=== PATIENT | female | born 1995 | race Caucasian/White ===

== ENCOUNTER 2017-10-14 15:00 | Emergency (ER) | payer MEDICAID, SELFPAY | END 2017-10-14 16:22 | disposition home or self-care (01) | PROVIDERS: Emergency Provider Nurse Practitioner; Family Provider Family Medicine; Visit Provider Nurse Practitioner | DX: J06.9 Acute upper respiratory infection, unspecified (principal) | CPT/HCPCS: 87804; 99201 ==

== ENCOUNTER 2017-10-20 22:13 | Emergency (ER) | payer MEDICAID, SELFPAY ==
[2017-10-20 22:19] VITALS: BP 114/64; PULSE 68; RESP 18; TEMP 37.1; O2SAT 98; BMI 18.6
--- NOTE | 2017-10-20 22:43 | HMH.EDANIB ---
ED Disposition Clinical Impression: Dog bite of extremity, Laceration Disposition: Home, Self-Care Condition on Discharge: Good Instructions: How to Care for a Laceration After Repair Additional Instructions: suture out 10 days and see pcp for follow up and check with health dept Prescriptions: Minocycline HCl 100 mg PO BID #20 tab Referrals: Milo Michel MD [Primary Care Provider] - - Critical Care Critical Care Time: No Attestation: On , the high probability of a clinically significant, sudden or life threatening deterioration of the following system(s) required my full and direct attention, intervention and personal management. The time I documented below is in addition to time spent performing reported procedures but includes the following listed in this critical care notation. Medical Decision Making - Medical Records Medical records reviewed: Yes: I reviewed the patient's medical records. Vital Signs: 10/20/17 22:19 Temperature 98.8 F Temperature Source Oral Pulse Rate [Right Radial] 68 Respiratory Rate 18 Blood Pressure [Right Arm] 114/64 Blood Pressure Mean [Right Arm] 80 Blood Pressure Source [Right Arm] Automatic Cuff Blood Pressure Position [Right Arm] Sitting 02 Sat by Pulse Oximetry 98 Oxygen Delivery Method Room Air Orders (Tests/Meds): ED MEDICATIONS Discontinued Medications Generic Name Dose Route Start Last Admin Trade Name Freq PRN Reason Stop Dose Admin Tetanus/Diphtheria Toxoids 0.5 ml 10/20/17 22:53 10/20/17 23:00 Tenivac 0.5ml Syringe IM 10/20/17 22:54 0.5 ml .ONCE ONE Administration - Leonel Inquiry Pt receiving controlled substance: No Animal Bite HPI - General Chief Complaint: Extremity Injury, Upper Stated Complaint: AO 10/20/17 @ 2030 Dog Bite to Left Arm Time Seen by Provider: 10/20/17 22:43 Mode of Arrival: Ambulatory Source of Information: Patient, Significant Other, Medical Record Limitations: No Limitations Description of Symptoms (Recalled from ER Triage Doc. by RN): PT REPORTS SHE WAS BITTEN BY A STRAY DOG ON LEFT FOREARM - History of Present Illness HPI narrative: pt with dog bite on lt forearm tonight by loretta cruz MD complaint: animal bite Onset (ago): hour(s) Animal: dog Description of animal: unknown animal, immunizations unknown, appeared well Mechanism: bite Left: forearm Context: animals fighting Associated symptoms: none - Related Data Patient tetanus UTD: No Home Medications Medication Instructions Recorded Confirmed Escitalopram Oxalate [Lexapro] 10 mg PO DAILY 10/20/17 10/20/17 Previous Rx's Medication Instructions Recorded Minocycline HCl 100 mg PO BID #20 tab 10/20/17 Allergies Allergy/AdvReac Type Severity Reaction Status Date / Time Penicillins [PENICILLINS] Allergy Unknown Verified 10/20/17 22:30 [facility] History I have reviewed the patient's past medical history: Yes Laterality Cases: Bilateral: Tonsillectomy - *Social History Smoking Status: Current every day smoker Tobacco Type: cigarettes Alcohol Intake: never - Psychiatric History Expresses thoughts of harming self/others: None Suicide Plan Description: No Plan ROS Obtained: Yes All systems reviewed & no additional complaints except as noted - Constitutional Denies fever(s) - Eyes Denies change in vision - ENT Denies neck pain - Cardiovascular Denies chest pain - Respiratory Denies cough - Gastrointestinal Denies abdominal pain - Musculoskeletal Denies joint pain - Integumentary/Breasts Reports wounds - Neurologic Denies seizure-like activity Physical Exam - General General appearance: in no apparent distress - Head Head exam: normocephalic - Eye Eye exam: Present: PERRL, EOMI - ENT ENT exam: Present: mucous membranes moist - Neck Neck exam: Present: full ROM - Respiratory Respiratory exam: Absent: respiratory distress - Cardiovascular Cardiovascular exam: Present: r
--- NOTE | 2018-01-19 17:03 | ED_ITS ---
ED Disposition Clinical Impression: Dog bite of extremity, Laceration Disposition: Home, Self-Care Condition on Discharge: Good Instructions: How to Care for a Laceration After Repair Additional Instructions: suture out 10 days and see pcp for follow up and check with health dept Prescriptions: Minocycline HCl 100 mg PO BID #20 tab Referrals: Milo Michel MD [Primary Care Provider] - - Critical Care Critical Care Time: No Attestation: On , the high probability of a clinically significant, sudden or life threatening deterioration of the following system(s) required my full and direct attention, intervention and personal management. The time I documented below is in addition to time spent performing reported procedures but includes the following listed in this critical care notation. Medical Decision Making - Medical Records Medical records reviewed: Yes: I reviewed the patient's medical records. Vital Signs: 10/20/17 22:19 Temperature 98.8 F Temperature Source Oral Pulse Rate [Right Radial] 68 Respiratory Rate 18 Blood Pressure [Right Arm] 114/64 Blood Pressure Mean [Right Arm] 80 Blood Pressure Source [Right Arm] Automatic Cuff Blood Pressure Position [Right Arm] Sitting 02 Sat by Pulse Oximetry 98 Oxygen Delivery Method Room Air Orders (Tests/Meds): ED MEDICATIONS Discontinued Medications Generic Name Dose Route Start Last Admin Trade Name Freq PRN Reason Stop Dose Admin Tetanus/Diphtheria Toxoids 0.5 ml 10/20/17 22:53 10/20/17 23:00 Tenivac 0.5ml Syringe IM 10/20/17 22:54 0.5 ml .ONCE ONE Administration - Leonel Inquiry Pt receiving controlled substance: No Animal Bite HPI - General Chief Complaint: Extremity Injury, Upper Stated Complaint: AO 10/20/17 @ 2030 Dog Bite to Left Arm Time Seen by Provider: 10/20/17 22:43 Mode of Arrival: Ambulatory Source of Information: Patient, Significant Other, Medical Record Limitations: No Limitations Description of Symptoms (Recalled from ER Triage Doc. by RN): PT REPORTS SHE WAS BITTEN BY A STRAY DOG ON LEFT FOREARM - History of Present Illness HPI narrative: pt with dog bite on lt forearm tonight by loretta cruz MD complaint: animal bite Onset (ago): hour(s) Animal: dog Description of animal: unknown animal, immunizations unknown, appeared well Mechanism: bite Left: forearm Context: animals fighting Associated symptoms: none - Related Data Patient tetanus UTD: No Home Medications Medication Instructions Recorded Confirmed Escitalopram Oxalate [Lexapro] 10 mg PO DAILY 10/20/17 10/20/17 Previous Rx's Medication Instructions Recorded Minocycline HCl 100 mg PO BID #20 tab 10/20/17 Allergies Allergy/AdvReac Type Severity Reaction Status Date / Time Penicillins [PENICILLINS] Allergy Unknown Verified 10/20/17 22:30 [facility] History I have reviewed the patient's past medical history: Yes Laterality Cases: Bilateral: Tonsillectomy - *Social History Smoking Status: Current every day smoker Tobacco Type: cigarettes Alcohol Intake: never - Psychiatric History Expresses thoughts of harming self/others: None Suicide Plan Description: No Plan ROS Obtained: Yes All systems reviewed & no additional complaints except
== END 2017-10-20 23:38 | disposition home or self-care (01) ==
PROVIDERS: Emergency Provider Emergency Medicine; Family Provider Family Medicine; PCP Family Medicine
DX: S51.832A Puncture wound without foreign body of left forearm, initial encounter (principal); W54.0XXA Bitten by dog, initial encounter; Y92.9 Unspecified place or not applicable; Z23 Encounter for immunization
CPT/HCPCS: 90714; 96372; 99282

== ENCOUNTER → 2018-11-21 07:31 | Outpatient (CLI) | payer BC, SELFPAY ==
[2018-11-22 07:48] LABS: Basophils % 0.9 % (0.1-2.0); Eosinophils # 0.1 K/mm3 (0.0-0.4); Eosinophils % 2.2 % (0.1-12.0); Hematocrit 41.3 % (37.0-47.0); Hemoglobin 13.2 g/dL (12.2-16.2); Lymphocytes % 21.9 % (10-50); Mean Corpuscular Hemoglobin 29.6 pg (27.0-31.2); Mean Corpuscular Volume 92.4 fl (81-99); Mean Platelet Volume 8.8 fl (7.4-10.4); Monocytes # 0.3 K/mm3 (0.1-1.0); Monocytes % 6.9 % (1.7-9.3); Neutrophils # 3.2 K/mm3 (1.8-7.8); Neutrophils % 68.1 % (37.0-80.0); Platelet Count 299 K/mm3 (142-424); Red Blood Count 4.47 M/mm3 (4.20-5.40); Red Cell Distribution Width 13.2 % (11.5-17.5); White Blood Count 4.7 K/mm3 (4.8-10.8)
[2018-11-22 08:14] LABS: Alanine Aminotransferase 13 U/L (12-78); Albumin Level 4.2 gm/dL (3.4-5.0); Albumin/Globulin Ratio 1.5 (1.1-1.8); Alkaline Phosphatase 48 U/L (46-116); Anion Gap 13.4 mEq/L (5-15); Aspartate Amino Transferase 8 U/L (15-37); Bilirubin,Total 0.4 mg/dL (0.2-1.0); Blood Urea Nitrogen 8 mg/dL (7-18); Calcium 9.3 mg/dL (8.5-10.1); Carbon Dioxide 26 mmol/L (21.0-32.0); Chloride 104 mmol/L (98-107); Chol/HDL Ratio 2.6 (1-3.5); Cholesterol 119 mg/dL (140-200); Creatinine,Serum 0.77 mg/dL (0.55-1.02); Estimated Glomerular Filt Rate 94 ml/min (>60); GFR (African American) 113 ML/MIN (>60); Globulin 2.8 gm/dl (1.3-3.2); Glucose 102 mg/dL (74-106); HDL Cholesterol 46 mg/dL (29-89); LDL Cholesterol 60 mg/dL (0-130); Potassium 4.4 mmoL/L (3.5-5.1); Sodium 139 mmol/L (136-145); T4 (Thyroxine) 9.2 ug/dl (4.7-13.3); Thyroid Stimulating Hormone 1.17 uIU/ml (0.358-3.740); Triglycerides 63 mg/dL (30-200); VLDL Cholesterol 13 mg/dL (0-40)
[2018-11-23 09:31] LABS: Vitamin D 25 Hydroxy 38.3 ng/mL (30.0-100.0)
== END ==
PROVIDERS: Visit Provider Physician Assistant
DX: F32.9 Major depressive disorder, single episode, unspecified (principal); F41.9 Anxiety disorder, unspecified; F43.10 Post-traumatic stress disorder, unspecified
CPT/HCPCS: 80053; 80061; 82652; 84436; 84443; 85025

== ENCOUNTER → 2019-02-19 13:30 | Outpatient (CLI) | payer BC, SELFPAY ==
[2019-02-19 14:47] LABS: HCG,Quantitative 758 mIU/mL
== END ==
PROVIDERS: Visit Provider Nurse Practitioner Obstetrics & Gynecology
DX: Z34.90 Encounter for supervision of normal pregnancy, unspecified, unspecified trimester (principal)
CPT/HCPCS: 36415; 84702

== ENCOUNTER → 2019-03-02 11:56 | Outpatient (CLI) | payer BC, MEDICAID, SELFPAY ==
--- NOTE | 2019-03-02 12:01 | US_ITS ---
US OB transvaginal CLINICAL INDICATION: ITS.REASON: US OB Dates ORDERING PHYSICIAN: Ty Healy MD PATIENT AGE: 24 years Comparison: None FINDINGS: There is an intrauterine gestational sac with a crown-rump length of 0.67 cm correlating to a gestational age of 6 weeks and 4 days. A yolk sac is present. heart tones are present at 129 bpm. There is a 6.6 cm cyst in the right adnexal region with low-level internal echoes and may represent a hemorrhagic cyst. There is blood flow within both ovaries. The left ovary is unremarkable. IMPRESSION: 1. Live intrauterine gestation at 6 weeks 4 days. Estimated due date by ultrasound is 10/22/2019 2. 6.6 cm complex right ovarian cyst
== END ==
PROVIDERS: PCP Physician Assistant; Visit Provider Nurse Practitioner Obstetrics & Gynecology
DX: O26.841 Uterine size-date discrepancy, first trimester (principal)
CPT/HCPCS: 76817

== ENCOUNTER → 2019-03-02 12:37 | Outpatient (CLI) | payer BC, SELFPAY ==
[2019-03-02 13:00] LABS: Basophils % 0.4 % (0.1-2.0); Eosinophils # 0.1 K/mm3 (0.0-0.4); Eosinophils % 1.1 % (0.1-12.0); Hematocrit 36.2 % (37.0-47.0); Hemoglobin 12.5 g/dL (12.2-16.2); Lymphocytes # 1.3 K/mm3 (0.7-4.5); Lymphocytes % 22.8 % (10-50); Mean Corpuscular HGB Conc 34.7 g/dL (31.8-35.4); Mean Corpuscular Hemoglobin 30.2 pg (27.0-31.2); Mean Corpuscular Volume 87.1 fl (81-99); Monocytes # 0.3 K/mm3 (0.1-1.0); Monocytes % 5.8 % (1.7-9.3); Neutrophils # 3.8 K/mm3 (1.8-7.8); Neutrophils % 69.9 % (37.0-80.0); Platelet Count 315 K/mm3 (142-424); Red Blood Count 4.15 M/mm3 (4.20-5.40); Red Cell Distribution Width 12.6 % (11.5-17.5); White Blood Count 5.5 K/mm3 (4.8-10.8)
[2019-03-02 14:15] LABS: HCG,Quantitative 16408 mIU/mL
[2019-03-03 08:40] LABS: Rapid Plasma Reagin Ab Titer Non Reactive (NonRea<1:1)
[2019-03-03 18:10] LABS: HIV Screen 4th Generation wRfx Non Reactive (Non Reactive); Hepatitis B Surface Antigen Negative (Negative); Hepatitis C Antibody <0.1 s/co ratio (0.0-0.9)
[2019-03-07 06:15] LABS: Neisseria gonorrhoeae, NAA Negative (Negative)
== END ==
PROVIDERS: Visit Provider Nurse Practitioner Obstetrics & Gynecology
DX: Z34.90 Encounter for supervision of normal pregnancy, unspecified, unspecified trimester (principal)
CPT/HCPCS: 36415; 84702; 85025; 86592; 86703; 86762; 86850; 87340; 87380; 87491; 87591; G0432

== ENCOUNTER → 2019-04-06 11:23 | Outpatient (CLI) | payer BC, SELFPAY | PROVIDERS: Visit Provider Nurse Practitioner Obstetrics & Gynecology | DX: O09.899 Supervision of other high risk pregnancies, unspecified trimester (principal); Z36.0 Encounter for antenatal screening for chromosomal anomalies | CPT/HCPCS: 36415 ==

== ENCOUNTER 2021-03-09 11:25 | Emergency (ER) | payer MEDICAID, SELFPAY ==
--- NOTE | 2021-03-09 | ECG_ITS ---
APPROVED REPORT Exam: Resting ECG HR:48 bpm ECG Measurements Heart Rate 48 AXES GA 122 P 45 QRSd 92 QRS 100 QT 426 T 46 QTc 380 Conclusion Marked sinus bradycardia with sinus arrhythmia Rightward axis Abnormal ECG Electronically signed by : Milo Catherine, 03/14/2021 07:37:51
[2021-03-09 11:26] VITALS: BP 129/70; PULSE 52; RESP 16; TEMP 36.8; O2SAT 100; BMI 22.8
--- NOTE | 2021-03-09 11:41 | XR_ITS ---
PROCEDURE: XR CHEST PORTABLE CLINICAL HISTORY: cough Chest pain and cough COMPARISON: No exams were available for comparison FINDINGS: The cardiomediastinal silhouette and pulmonary vascularity are within normal limits. The lungs are clear without infiltrates, suspicious nodules, or pleural effusions. No acute bony abnormalities. IMPRESSION: No acute findings. Dictated by: Ho Ayon MD 03/09/2021 12:05 Ho Ayon MD in OV 03/09/2021 12:05
[2021-03-09 11:45] VITALS: BP 108/66; PULSE 50; RESP 18; O2SAT 99
--- NOTE | 2021-03-09 11:54 | PC.NURSE ---
Rad at bedside.
[2021-03-09 12:00] VITALS: BP 108/62; PULSE 46; O2SAT 97
[2021-03-09 12:28] LABS: Alanine Aminotransferase 17 U/L (12-78); Albumin Level 4.4 g/dl (3.5-5.0); Albumin/Globulin Ratio 1.8 (1.1-1.8); Alkaline Phosphatase 58 U/L (38-126); Anion Gap 8.6 mEq/L (5-15); Aspartate Amino Transferase 31 U/L (14-36); Bilirubin,Total 0.4 mg/dl (0.2-1.3); Blood Urea Nitrogen 18 mg/dl (7-17); Calcium 8.6 mg/dl (8.4-10.2); Carbon Dioxide 27 mmol/L (22.0-30.0); Chloride 107 mmol/L (98-107); Creatinine Clearance Estimated 141 mL/min (50-200); Estimated Glomerular Filt Rate 122 ml/min (>60); GFR (African American) 147 ML/MIN (>60); Globulin 2.5 g/dL (1.3-3.2); Glucose 84 mg/dl (74-100); Potassium 3.6 mmoL/L (3.5-5.1); Sodium 139 mmol/L (136-145); Total Protein,Serum 6.9 g/dl (6.3-8.2)
[2021-03-09 12:34] LABS: Basophils % 0.5 % (0.1-2.0); Eosinophils # 0.1 K/mm3 (0.0-0.4); Eosinophils % 0.8 % (0.1-12.0); Hematocrit 36.2 % (37.0-47.0); Hemoglobin 12.3 g/dL (12.2-16.2); Lymphocytes # 2.2 K/mm3 (0.7-4.5); Lymphocytes % 36.4 % (10-50); Mean Corpuscular HGB Conc 34.1 g/dL (31.8-35.4); Mean Corpuscular Hemoglobin 29.8 pg (27.0-31.2); Mean Corpuscular Volume 87.5 fl (81-99); Mean Platelet Volume 8.1 fl (7.4-10.4); Monocytes # 0.4 K/mm3 (0.1-1.0); Monocytes % 6.8 % (1.7-9.3); Neutrophils # 3.3 K/mm3 (1.8-7.8); Neutrophils % 55.5 % (37.0-80.0); Platelet Count 281 K/mm3 (142-424); Red Blood Count 4.14 M/mm3 (4.20-5.40); Red Cell Distribution Width 13.2 % (11.5-17.5); White Blood Count 5.9 K/mm3 (4.8-10.8)
[2021-03-09 12:36] VITALS: BP 103/62; PULSE 50; RESP 18; O2SAT 97
[2021-03-09 12:39] LABS: Troponin I < 0.01 ng/ml (0.00-0.034)
--- NOTE | 2021-03-09 12:53 | HMH.EDGENADL ---
ED Disposition Clinical Impression: Costochondritis, acute Upper respiratory infection Qualifiers: URI type: unspecified URI Qualified Code(s): J06.9 - Acute upper respiratory infection, unspecified Disposition: Home, Self-Care Condition on Discharge: Good Instructions: DI for Costochondritis Prescriptions: Ibuprofen [Ibuprofen 800mg Tablet] 800 mg PO TIDP PRN #20 tab PRN Reason: Moderate Pain Transmission Status: Pending to [id number] Referrals: Provider,Referral, [Primary Care Provider] - - Critical Care Critical Care Time: No Attestation: On 03/09/21, the high probability of a clinically significant, sudden or life threatening deterioration of the following system(s) required my full and direct attention, intervention and personal management. The time I documented below is in addition to time spent performing reported procedures but includes the following listed in this critical care notation. Medical Decision Making - Medical Records Medical records reviewed: Yes: I reviewed the patient's medical records. - Leonel Inquiry Pt receiving controlled substance: No Vital Signs: 03/09/21 11:26 03/09/21 11:45 03/09/21 12:00 Temperature 98.3 F Temperature Source Oral Pulse Rate 50 L 46 L Pulse Rate [Right] 52 L Respiratory Rate 16 18 Blood Pressure 108/66 L 108/62 L Blood Pressure [Right Arm] 129/70 Blood Pressure Mean Blood Pressure Mean [Right Arm] 89 Blood Pressure Source [Right Arm] Automatic Cuff Blood Pressure Position [Right Arm] Sitting 02 Sat by Pulse Oximetry 100 99 97 Oxygen Delivery Method Room Air 03/09/21 12:36 Temperature Temperature Source Pulse Rate 50 L Pulse Rate [Right] Respiratory Rate 18 Blood Pressure 103/62 L Blood Pressure [Right Arm] Blood Pressure Mean 72 Blood Pressure Mean [Right Arm] Blood Pressure Source [Right Arm] Blood Pressure Position [Right Arm] 02 Sat by Pulse Oximetry 97 Oxygen Delivery Method - Lab Data Lab Results 03/09/21 11:52: WBC 5.9, RBC 4.14 L, Hgb 12.3, Hct 36.2 L, MCV 87.5, MCH 29.8, MCHC 34.1, RDW 13.2, Plt Count 281, MPV 8.1, Neut % (Auto) 55.5, Lymph % (Auto) 36.4, Pershing % (Auto) 6.8, Eos % (Auto) 0.8, Baso % (Auto) 0.5, Neut # (Auto) 3.3, Lymph # (Auto) 2.2, Pershing # (Auto) 0.4, Eos # (Auto) 0.1, Baso # (Auto) 0.0 03/09/21 11:52: D-Dimer 0.48 03/09/21 11:52: Sodium 139, Potassium 3.6, Chloride 107, Carbon Dioxide 27, Anion Gap 8.6, BUN 18 H, Creatinine 0.60, Estimated Creat Clear 141, Estimated GFR 122, Est GFR ( Amer) 147, Glucose 84, Calcium 8.6, Total Bilirubin 0.4, AST 31, ALT 17, Alkaline Phosphatase 58, Troponin I < 0.01, Total Protein 6.9, Albumin 4.4, Globulin 2.5, Albumin/Globulin Ratio 1.8 Result diagrams: 03/09/21 11:52 03/09/21 11:52 Orders (Tests/Meds): ED MEDICATIONS Discontinued Medications Generic Name Dose Route Start Last Admin Trade Name Freq PRN Reason Stop Dose Admin Sodium Chloride 1,000 mls @ 999 mls/hr 03/09/21 11:45 03/09/21 11:51 Sod Chlor 0.9% 1000ml Bag IV 03/09/21 12:45 999 mls/hr .Q1H1M MICHAEL Administration Ketorolac Tromethamine 30 mg 03/09/21 11:41 03/09/21 11:51 Ketorolac 30mg/Ml Vial IV 03/09/21 11:42 30 mg ONCE ONE Administration ORDERS Category Date Time Status Troponin I Q3H Lab 03/09/21 14:45 Ordered Troponin I Q3H Lab 03/09/21 17:45 Ordered - Radiology Data #1 Image(s): Chest Image Reviewed: Yes I reviewed the patient's radiology results, Yes I reviewed the patient's radiology image, Yes I have reviewed radiologist's interpretation Preliminary Findings: Normal/NAD - ECG Data Tracing #1 Bradycardic rate of 40 bpm. Normal ME interval, normal QTC. Sinus bradycardia with nonspecific ST changes. ECG initial impression date: 03/09/21 ECG initial impression time: 11:28 - Reevaluation(s) Time: 13:20 Reevaluation #1: On reevaluation, patient is feeling much better. Troponin and
[2021-03-09 13:05] LABS: D-Dimer 0.48 ug/mL (0.0-0.5)
[2021-03-09 14:04] VITALS: BP 112/70; PULSE 55; RESP 16; TEMP 36.8; O2SAT 98
== END 2021-03-09 14:14 | disposition home or self-care (01) ==
PROVIDERS: Emergency Provider Emergency Medicine
DX: M94.0 Chondrocostal junction syndrome [Tietze] (principal); J06.9 Acute upper respiratory infection, unspecified; F41.8 Other specified anxiety disorders; F17.210 Nicotine dependence, cigarettes, uncomplicated
CPT/HCPCS: 71045; 80053; 84484; 85025; 85378; 93005; 96365; 96375; 99282